=== PATIENT | female | born 1965 | race Caucasian/White ===

== ENCOUNTER 2024-01-09 12:19 | Emergency (ER) | payer BC, SELFPAY ==
[2024-01-09 12:20] VITALS: BP 153/98
[2024-01-09 12:44] VITALS: BMI 31.9
[2024-01-09 13:00] VITALS: BP 122/80
[2024-01-09 13:03] LABS: % Basophils 0.4 % (0-2); % Eosinophils 1.8 % (0-6); % Immature Granulocytes 0.3 % (0-0.5); % Lymphocytes 31.7 % (20.5-51.1); % Monocytes 8.4 % (1.7-9.3); % Neutrophils 57.4 % (42.2-75.2); Absolute Eosinophils 0.1 10^3/uL (0-0.7); Absolute Lymphocytes 2.1 10^3/uL (1.2-3.4); Absolute Monocytes 0.6 10^3/uL (0.1-0.6); Absolute Neutrophils 3.9 10^3/uL (1.4-6.5); Hematocrit 37.4 % (37.0-47.0); Hemoglobin 13.3 g/dL (12.0-16.0); Mean Corp Hgb Conc. 35.6 g/dL (33.0-37.0); Mean Corpuscular Hgb 29.9 pg (27.0-31.0); Mean Platelet Volume 9.7 fL (7.4-10.4); Nucleated Red Blood Cells % 0 %; Platelet Count 219 10^3/uL (130-400); Red Blood Cell Count 4.45 10^6/uL (4.20-5.40); Red Cell Dist. Width 12.8 % (11.5-14.5); White Blood Cell Count 6.8 10^3/uL (4.8-10.8)
[2024-01-09 13:23] LABS: ALT (SGPT) 16 U/L (0-35); AST (SGOT) 18 U/L (14-36); Albumin 4.2 g/dl (3.5-5.0); Alkaline Phosphatase 74 U/L (38-126); Blood Urea Nitrogen 17 mg/dl (7-17); Calcium 9.4 mg/dl (8.4-10.2); Carbon Dioxide 27 mmol/L (22-30); Chloride 106 mmol/L (98-107); Estimated Creatinine Clearance 98 ml/min; Glucose 93 mg/dl (70-99); Potassium 3.9 mmol/L (3.5-5.1); Sodium 142 mmol/L (135-145); Total Bilirubin 0.3 mg/dl (0.2-1.3); Total Protein 6.7 g/dl (6.3-8.2); eGFR > 60.00
[2024-01-09 13:34] LABS: Troponin I < 0.012 ng/ml
[2024-01-09 13:48] VITALS: BP 123/79
[2024-01-09 14:00] VITALS: BP 114/80
--- NOTE | 2024-01-09 14:33 | ED.GENMED ---
History of Present Illness
General
Chief Complaint: Chest Pain
Source: patient and spouse
Exam Limitations: none
Time Seen by Provider: 01/09/24 12:42
Travel History
Have you had any contact with someone who has COVID-19?: No
Do you have any symptoms of coronavirus? Fever > 100 degrees, chills, cough, shortness of breath, sore throat, loss of taste or smell, muscle aches, or headache?: No
History of Present Illness
History of Present Illness:
This is a 58yo female who presents concerned about her BP. she has been monitoring her BP because she just switched from HCTZ to olmesartan. Patient states that it has been under decent control the last few days has been more elevated in the 160
over 80s range. Patient also states that since about 5:30 AM she has had a little bit of chest pressure. She called her doctor who advised her to come to the hospital. The patient states that the discomfort has been constant since this morning.
She does admit that she has been a little bit anxious as she has a history of anxiety and in addition her significant other has been dealing with prostate cancer and require surgery. No vomiting. No shortness of breath. No recent chest pain with
exertion. No leg swelling. Patient does state that she recently quit smoking and her blood pressure has been a little bit elevated since then.
Past History
Past History
ED Past Medical History: HTN and Psychiatric
ED Past Surgical History: Cholecystectomy and Gynecological
Social History
Tobacco: Former smoker
Phy Exam
Physical Exam
Physical Exam:
CONSTITUTIONAL Patient alert and oriented to person, place and time. Well-appearing. Vital signs reviewed. Blood pressure 118/81 on exam
HEAD atraumatic, normocephalic.
EYES eyelids normal to inspection, Extraocular muscles intact, Conjunctiva normal, Sclera normal.
NECK normal range of motion, Trachea midline, no jugular venous distention.
RESPIRATORY CHEST No respiratory distress noted, Chest expansion equal, Bilateral breath sounds clear.
CARDIOVASCULAR regular rate and rhythm, Heart sounds normal.
ABDOMEN abdomen nontender, Bowel sounds normal. No distention.
BACK normal inspection, no obvious deformities
UPPER EXTREMITY range of motion normal, Motor strength normal, no cyanosis, no edema.
LOWER EXTREMITY range of motion normal, Motor strength normal, no cyanosis, no edema.
NEURO Speech normal, No focal motor deficits, Riaz coma scale 15, Memory normal, Cranial Nerves intact to screening exam.
SKIN skin warm, dry, and normal in color.
PSYCHIATRIC patient oriented to person place and time, Normal affect.
Scores
Heart Score for Chest Pain Patients
STEMI patient?: No
History: Slightly or Non-Suspicious
ECG: Normal
Age: >45 - <65 years
Risk Factors: 1 or 2 Risk Factors
Troponin: </= Normal Limit
Heart Score for Chest Pain Patients: 2
Heart Score Risk: 2.5% MACE over next 6 weeks
Course
Orders/Labs/Results
Orders:
Orders
01/09/24 12:21
EKG [Electrocardiogram (*1)] Urgent
Reason for Study: Other
Other Reason for Exam: Chest Pressure
01/09/24 12:22
EKG- Treatment ONCE
01/09/24 12:42
CR Chest - 2 Views Urgent
Comment:
Reason For Exam: cp, HTN
01/09/24 12:56
Complete Blood Count/With Diff Urgent
Comprehensive Metabolic Panel Urgent
Troponin I Urgent
01/09/24 12:56
01/09/24 12:56
Vital Signs
Initial and Last Documented VS:
Initial Vital Signs
Temp Pulse Resp BP Pulse Ox
97.6 F 85 20 153/98 96
01/09/24 12:20 01/09/24 12:20 01/09/24 12:20 01/09/24 12:20 01/09/24 12:20
Last Documented Vital Signs
Temp Pulse Resp BP Pulse Ox
97.6 F 72 11 110/72 95
01/09/24 12:20 01/09/24 14:56 01/09/24 14:56 01/09/24 14:56 01/09/24 14:56
MDM/Problems Addressed
Differential Diagnosis Includes:
Acute coronary syndrome, pulmonary embolism, aortic dissection, anxiety, uncontrolled hypertension
MDM/Problems Addressed:
Uncontrolled hypertension, chest pain
*Radiology
Radiology exam reviewed: radiology read reviewed
*Pulse Oximetry
Patient hypoxic: no
*EKG
Interpreted by ED Provider?: Yes
Interpretation: normal
Rate: normal
Rhythm: sinus
[place]: normal axis
QRS Pattern: normal QRS
Ischemia: no ischemia
*Equipment Service Engineer Interpretation
Rate: normal
Interpretation: normal
Rhythm: sinus
*Critical Care Note
Total Time (30-74mins, 75-104mins- exclusive of procedures): Not Applicable
Data Reviewed
Source: patient
Prescriptions/Medications Considered But Not Given:
Consider nitroglycerin but EKG normal, troponin negative
Patient Management
Escalation/DeEscalation of care consider admission/obs:
Patient appears well. Troponin EKG normal despite symptoms since 5 AM. Blood pressure normal here at 114/80. Recommended that she continue her olmesartan. Patient has only been on it for a few days. Consider labs and outpatient follow-up with
PCP. Will also refer to cardiology outpatient follow-up online for chest
ED Attending Note
-
Portions of this chart may have been created with voice recognition software.� Occasional wrong word or��sound alike� substitutions may have occurred due to the inherent limitations of voice recognition software.
Discharge Plan
Departure
Patient Disposition: Home (Routine Discharge)
Date of Disposition: 01/09/24
Time of Disposition: 14:42
Patient with high blood pressure during this ER visit?: No
Discharge Problem:
Chest discomfort
Instructions: Chest Pain CBC Follow Up
Prescriptions:
No Action
albuterol sulfate [ProAir HFA] 90 mcg/actuation HFA aerosol inhaler
1 puff inhalation Q4HPRN PRN (Reason: shortness of breath) Qty: 6.7 0RF
prednisone 20 mg tablet
40 mg PO DAILY 5 Days Qty: 10 0RF
Referrals:
Mayra Reina DO [Family Provider] -
Activity Restrictions/Additional Instructions:
Please continue your blood pressure medications. Please see your doctor in the next 3 to 5 days for follow-up and reevaluation. Please avoid strenuous or exertional activity until cleared by cardiology. Please see cardiology in the next 48 hours
for reevaluation. Return immediately for worsening pain, shortness breath, palpitations, sweating, nausea, weakness of any kind, numbness, tingling or any other concerns.
Cardiology has been notified and a follow up appointment has been requested. Someone will call you on the next business day to schedule a follow up appointment.
Interventions
Interventions:
*Risk Screen - Suicide Last Done: 01/09/24 12:20
*General Assessment Last Done: 01/09/24 12:20
*Neglect/Abuse Screening Last Done: 01/09/24 12:20
ED- Fall Risk Assessment Last Done: 01/09/24 12:44
*ED COVID-19 Vaccine History Last Done: 01/09/24 12:44
*Nursing Disposition Last Done: 01/09/24 15:08
ED- Cardiac Assessment Last Done: 01/09/24 12:44
Discharge Date and Time
Discharge Date/Time: 01/09/24 15:08
Print Language: URDU
[2024-01-09 14:56] VITALS: BP 110/72
== END 2024-01-09 15:08 | disposition home or self-care (01) ==
LOC: EMR 12:19
PROVIDERS: EMERGENCY PHYSICIAN Emergency Medicine; FAMILY PHYSICIAN Family Medicine
DX: R07.89 Other chest pain (principal); F41.9 Anxiety disorder, unspecified; I10 Essential (primary) hypertension; Z87.891 Personal history of nicotine dependence
CPT/HCPCS: 99283; 71046; 80053; 84484; 85025; 93005